=== PATIENT | female | born 1990 | race Caucasian/White ===

== ENCOUNTER 2017-01-04 00:17 | Emergency (ER) | payer OTHER | END 2017-01-04 06:00 | disposition home or self-care (01) | LOC: ER1 00:17 | DX: S61.411A Laceration without foreign body of right hand, initial encounter (principal); S60.221A Contusion of right hand, initial encounter; F17.210 Nicotine dependence, cigarettes, uncomplicated; Z98.51 Tubal ligation status; Z86.73 Personal history of transient ischemic attack (TIA), and cerebral infarction without residual deficits; W51.XXXA Accidental striking against or bumped into by another person, initial encounter | CPT/HCPCS: 73130; 90471; 90715; 99283 ==

== ENCOUNTER 2022-02-27 12:45 | Emergency (ER) | payer OTHER ==
[2022-02-27 14:11] LABS: HEMOGLOBIN 13.1 gm/dl (12.3-15.3); RED BLOOD COUNT 4.22 M/UL (4.00-5.10); WHITE BLOOD COUNT 6.9 K/UL (4.5-11.0)
[2022-02-27 14:50] LABS: BUN/CREATININE RATIO 11 (0-10)
[2022-02-27] MEDS ORDERED: MEDROL DOSEPAK 24 MG PO (15:54)
[2022-02-27] MEDS ORDERED: ZANAFLEX4 MG PO (16:00)
== END 2022-02-27 16:44 | disposition home or self-care (01) ==
LOC: ER1 12:45
PROVIDERS: Physician Assistant
DX: S46.012A Strain of muscle(s) and tendon(s) of the rotator cuff of left shoulder, initial encounter (principal); Z90.89 Acquired absence of other organs; Z90.49 Acquired absence of other specified parts of digestive tract; F17.210 Nicotine dependence, cigarettes, uncomplicated; X58.XXXA Exposure to other specified factors, initial encounter
CPT/HCPCS: 71045; 73030; 80053; 82550; 82553; 84484; 85025; 85379; 85652; 86140; 93005; 99284; J1100